=== PATIENT | female | born 1960 | race Caucasian/White ===

== ENCOUNTER → 2016-08-18 | Day surgery (SDC) | payer OTHER ==
--- NOTE | 2016-08-17 17:12 | History & Physical Pre-Op ---
General Information and HPI History of Present Illness: Kwame is a 55-year-old female with a long-standing was complaining of painful hallux limitus left foot. The patient is undergone an extended course conservative care, including shoe gear and activity modification, rest, immobilization and courses of NSAIDs. None of this is yielded her any significant relief. The patient presents today for preoperative surgical consultation. Allergies/Medications Allergies: Coded Allergies: Penicillins (08/12/16) codeine (08/12/16) Home Med list Albuterol Sulfate (Proair Hfa) 90 MCG HFA.AER.AD 2 PUF INH Q4-6 PRN PRN BREATHING (Reported) Albuterol Sulfate 2.5 MG/0.5 ML VIAL.NEB 1 Vial INH/DAVID BREATHING PROBLEMS ( Reported) Bupropion HCl (Wellbutrin XL) 300 MG TAB.ER.24H 1 TAB PO DAILY MENTAL HEALTH (Reported) Citalopram Hydrobromide (Celexa) 40 MG TABLET 1 TAB PO DAILY MENTAL HEALTH ( Reported) Cyclobenzaprine HCl 10 MG TABLET 1 TAB PO SPASM (Reported) Gabapentin (Neurontin) 300 MG CAPSULE 1 CAP PO BID PAIN (Reported) Levothyroxine Sodium (Synthroid) 112 MCG TABLET 1 TAB PO DAILY AC THYROID ( Reported) Trazodone HCl 100 MG TABLET 1 TAB PO UNKNOWN (Reported) Past History Medical History Respiratory: asthma, bronchitis, COPD Surgical History Pertinent Surgical History: non-contributory Review of Systems Review of Systems: Unremarkable except for that noted to present illness Exam & Diagnostic Data Physical Exam: Lungs clear bilaterally. Heart sounds rate and rhythm regular. Lower extremity physical exam demonstrates intact pedal pulses bilaterally. Pulses dorsalis pedis and posterior tibial arteries are palpable bilaterally. Patient without any sensory motor deficits. Deep tendon reflexes grossly intact. Patient noted assuming pain with palpation range of motion through the left first metatarsophalangeal joint. The range of motion is noted to be diminished particular in dorsiflexion. Assessment/Plan Assessment/Plan: Gil left foot. A lengthy discussion reviewing both surgical and conservative options held the patient bedside and the patient elects to go forward with surgery despite the risks. As Ranked By This Provider Problem List: 1. Hallux rigidus of left foot Attending MD Review Statement Attending Statement Attending MD Statement: examined this patient
[~2016-08-18] VITALS: Ht 172.7 cm; Wt 88.5 kg
[~2016-08-18] MED LIST: ALBUTEROL2.5 MG/0.5 INH/SOL; CELEXA40 M1 PO; CYCLOBENZAPRINE10 M1 PO; NEURONTIN300 M1 PO; PROAIR HFA8.5 GM INH; SYNTHROID112 MCG PO; TRAZODONE HCL100 M1 PO; WELLBUTRIN XL300 M2 PO; XANAX1 M1 PO
--- NOTE | 2016-08-18 08:48 | Operative Report ---
Operative/Inv Procedure Report Surgery Date: 08/18/16 Name of Procedure: 1 arthroplasty left first MPJ with juan-implant 2 intraoperative administration of ankle block anesthesia Pre-Operative Diagnosis: 1 severe hallux limitus left first MPJ Post-Operative Diagnosis: The same Estimated Blood Loss: scant Surgeon/Mental Health Program Manager: MARU LEO DPM Anesthesia: moderate sedation, block Operative/Procedure Note Note: After obtaining informed consent the patient was brought to the operating room and placed on the operating table in the supine position. The patient isn't securely fastened to the operating table utilizing safety belt. After administration of IV sedation, 10 mL of 0.5% Marcaine plain was infiltrated about the patient's left ankle. Well-padded ankle tourniquet was placed about the patient's left lower extremity. 600 mg clindamycin were delivered intravenously times one dose. Left foot and ankle within scrubbed prepped and draped in usual aseptic manner. Left lower extremity is elevated to examine to limb, which point the ankle tourniquet was inflated 250 mmHg. Attention directed dorsal aspect the left foot where 6 cm linear incision was made just medial to the course of the extensor listless longus tendon. The skin was signed 15 blade and deepened subtenons tissues. All vital neurovascular structures were identified and protected. A linear capsulotomy was then performed exposing the dorsal exostoses and the medial eminence. This was then resected with a sagittal bone saw. Proximal centimeter of the proximal base was resected with sagittal bone saw. Sizing and broaching was then utilized to place a juan-implant which is noted to fit well and was then irrigated with cuff Svensson normal sterile saline. And the capture structures reapproximated 3-0 Vicryl. Subtenons tissues reports a 4-0 Vicryl and the skin is reapproximated 4 -0 nylon. Incision was dressed with Xeroform 4 x 4's Kerlix and Demetrio wrap. The patient is noted tolerate both procedure and anesthesia well and the patient was transported from the operating room to recovery by sent stable best assess intact all digits left foot.
--- NOTE | 2016-12-05 13:30 | History & Physical Pre-Op ---
General Information and HPI History of Present Illness: Rosa is a 56-year-old female status post arthroplasty with implant left first metatarsophalangeal joint. The patient's postoperative course was uneventful and she seemed to be doing well, however she developed some discomfort associated with the implant and now require centimeter removed. Allergies/Medications Allergies: Coded Allergies: Penicillins (08/12/16) codeine (08/12/16) Home Med list Albuterol Sulfate (Proair Hfa) 90 MCG HFA.AER.AD 2 PUF INH Q4-6 PRN PRN BREATHING (Reported) Albuterol Sulfate 2.5 MG/0.5 ML VIAL.NEB 1 Vial INH/DAVID BREATHING PROBLEMS ( Reported) Bupropion HCl (Wellbutrin XL) 300 MG TAB.ER.24H 1 TAB PO DAILY MENTAL HEALTH (Reported) Citalopram Hydrobromide (Celexa) 40 MG TABLET 1 TAB PO DAILY MENTAL HEALTH ( Reported) Cyclobenzaprine HCl 10 MG TABLET 1 TAB PO SPASM (Reported) Gabapentin (Neurontin) 300 MG CAPSULE 1 CAP PO BID PAIN (Reported) Levothyroxine Sodium (Synthroid) 112 MCG TABLET 1 TAB PO DAILY AC THYROID ( Reported) Trazodone HCl 100 MG TABLET 1 TAB PO UNKNOWN (Reported) Past History Medical History Respiratory: asthma, bronchitis, COPD Surgical History Pertinent Surgical History: non-contributory Review of Systems Review of Systems: Unremarkable except for that noted in history of present illness Exam & Diagnostic Data Physical Exam: Lungs clear bilaterally. Heart sounds rate and rhythm regular. Lower extremity physical exam demonstrates intact pedal pulses bilaterally. Both dorsalis pedis and posterior tibial arteries are palpable bilaterally. Patient without any sensory motor deficits. He tendon reflexes grossly intact. Patient noted to have pain with palpation or range of motion through the left first metatarsophalangeal joint, especially with palpation at the proximal extent of the proximal phalanx at the level of the implant. Assessment/Plan Assessment/Plan: Painful hardware left foot. A lengthy discussion reviewing both surgical and conservative options was held the patient at bedside and the patient elects to go forward with surgery despite the risks. As Ranked By This Provider Problem List: 1. Pain due to internal orthopedic prosthetic devices, implants and grafts, initial encounter Attending MD Review Statement Attending Statement Attending MD Statement: examined this patient
== END ==
LOC: STS 08-11 07:00
DX: M20.5X2 Other deformities of toe(s) (acquired), left foot (principal); M20.22 Hallux rigidus, left foot; E03.9 Hypothyroidism, unspecified; J44.9 Chronic obstructive pulmonary disease, unspecified; J45.909 Unspecified asthma, uncomplicated
CPT/HCPCS: 88304; C1776; J1100; J2001; J2250

== ENCOUNTER → 2016-12-08 | Day surgery (SDC) | payer OTHER ==
[~2016-12-08] VITALS: Ht 172.7 cm; Wt 90.7 kg
--- NOTE | 2016-12-08 13:19 | Operative Report ---
Operative/Inv Procedure Report Surgery Date: 12/08/16 Name of Procedure: 1 removal painful hardware left foot 2 intraoperative administration of ankle block anesthesia Pre-Operative Diagnosis: 1 painful hardware left foot Post-Operative Diagnosis: The same Estimated Blood Loss: scant Surgeon/Modular Home Crew Member: MARU LEO DPM Anesthesia: moderate sedation, block Operative/Procedure Note Note: After obtaining informed consent the patient was brought to the operating room and placed on the operating table in the supine position. The patient was then securely fastened to the operating table utilizing safety belt. After administration of IV sedation, 10 mL of 0.5% Marcaine plain was infiltrated about the patient's left ankle. A well-padded ankle tourniquet was placed about the patient's left lower extremity. The left foot and ankle within scrubbed prepped and draped in usual aseptic manner. The left lower extremity was elevated to exsanguinate the limb, at which point the ankle tourniquet was inflated 250 mmHg. Attention directed dorsal aspect the left foot, where a 4 cm linear incision was made over the first metatarsophalangeal joint. The skin was as a 15 blade and deepened subtenons tissues. The dissection was then carried down to the capture structures were linear capsulotomy was performed and the implant was identified and removed and passed from the operative field was sent a specimen for pathologic inspection. The open wound was then irrigated with copious Svensson normal sterile saline. Then reapproximated 3-0 Vicryl and the subtenons tissues reapproximated 4-0 Vicryl. The skin edges were then reapproximated 4-0 nylon. Incision was dressed with Xeroform 4 x 4's Kerlix and Demetrio wrap. The patient is noted tolerate both procedure and anesthesia well and the patient was transported from the operating room to recovery with vital signs stable best assess intact all digits left foot.
== END ==
LOC: STS 01:15
DX: T84.84XA Pain due to internal orthopedic prosthetic devices, implants and grafts, initial encounter (principal); M19.90 Unspecified osteoarthritis, unspecified site; J45.909 Unspecified asthma, uncomplicated; Z87.891 Personal history of nicotine dependence
CPT/HCPCS: J2001; J2250